=== PATIENT | male | born 1970 | race Caucasian/White ===

== ENCOUNTER 2020-06-13 14:33 | Emergency (ER) | payer BC, SELFPAY ==
--- NOTE | ~2020-06-13 | CT_ITS ---
EXAMINATION: CT lumbar spine wo con, CT pelvis wo con DATE: 06/13/2020 16:16 INDICATION: Low back and right sacroiliac joint pain. TECHNIQUE: 1. Computed tomography (CT) of the lumbar spine was performed without intravenous contrast. Automated exposure control and iterative reconstruction technique were employed. The dose-length product was 1 053.80 mGy-cm. 2. CT of the pelvis was performed without intravenous contrast. The dose-length product was 287.89 mG y-cm. COMPARISON: None FINDINGS: Lumbar spine: Alignment is normal. Vertebral body heights are normal. Mild disc height loss at L4-L5. Remaining dis c heights are normal. Paravertebral soft tissues are unremarkable. The following disc levels are spec ifically discussed: T11-T12: The disc does not extend beyond the endplate margin. There is mild left and minimal right fa cet joint osteoarthritis. There is no neural foraminal stenosis. There is no central canal stenosis. T12-L1: Disc is minimally bulging. There is mild bilateral facet joint osteoarthritis. There is no ne ural foraminal stenosis. There is no central canal stenosis. L1-L2: Disc is mildly bulging. There is mild bilateral facet joint osteoarthritis. There is no neural foraminal stenosis. There is minimal central canal stenosis. L2-L3: Disc is mildly bulging. There is mild bilateral facet joint osteoarthritis. There is no neural foraminal stenosis. There is minimal central canal stenosis. L3-L4: Disc is mildly bulging. There is mild bilateral facet joint osteoarthritis. There is no neural foraminal stenosis. There is minimal central canal stenosis. L4-L5: Disc is bulging with suggestion of small central disc extrusion which extends up to 5 mild or caudal to the level of the superior endplate of L5. There is mild bilateral facet joint osteoarthriti s. There is mild bilateral neural foraminal stenosis. There is mild to moderate central canal stenosi s. L5-S1: The disc does not extend beyond the endplate margin. There is mild bilateral facet joint osteo arthritis. There is no neural foraminal stenosis. There is no central canal stenosis. Pelvis: Bone alignment is normal. No fracture. Minimal bilateral sacroiliac osteoarthritis. No erosions or tyson barticular sclerosis to suggest an inflammatory arthritis. Minimal bilateral hip osteoarthritis with relatively preserved joint spaces and tiny marginal osteophytes about the femoral heads and acetabula . There is bilateral decreased anterosuperior femoral head neck offset. There are couple small sclero tic bone islands at the right femoral head and in the right supra-acetabular region. No avascular nec rosis. There are a couple diverticula along the descending and sigmoid colon without adjacent inflamm atory change to suggest diverticulitis. Normal appendix. Bladder is normal. No pathologically enlarge d pelvic or inguinal lymphadenopathy. IMPRESSION: 1. Minimal to mild lumbar spondylosis most prominent at L4-L5 where there is mild to moderate central canal stenosis. 2. Normal bilateral sacroiliac joints and minimal bilateral hip osteoarthritis. Reviewed, dictated and finalized at location B. IMPRESSION: 1. Minimal to mild lumbar spondylosis most prominent at L4-L5 where there is mi ld to moderate central canal stenosis. 2. Normal bilateral sacroiliac joints and minimal bilateral hip osteoarthritis.
[2020-06-13 14:50] VITALS: BP 111/83; PULSE 63; RESP 18; TEMP 36.7; O2SAT 100
--- NOTE | 2020-06-13 15:16 | ED.BACK ---
HPI - Back Pain/Injury General Chief Complaint: Back Pain/Injury Stated Complaint: 49 YO male w/ 4 day h/o right low back pain after he was lifting a small engine at work. Patient denies trauma or injury but states sfter he lifted the engine he has been having pain on movement. he was on his way to his chiropractor today when he wasn't able to get comfortable, he decided to some to ED instead. Related Data Home Medications Medication Instructions Recorded Confirmed gabapentin 300 mg PO DAILY 06/13/20 06/13/20 Allergies Allergy/AdvReac Type Severity Reaction Status Date / Time phenylephrine Allergy Severe Hives Verified 06/13/20 15:29 Review of Systems Review of Systems: All systems reviewed & are unremarkable except as noted in HPI and below Constitutional: Constitutional: Reports no additional constitutional complaints Eyes: Eyes: Reports as per HPI ENT: Reports system reviewed and no additional complaints, except as documented Cardiovascular: Cardiovascular: Reports no additional cardiovascular complaints Respiratory: Respiratory: Reports no additional respiratory complaints Gastrointestinal: Gastrointestinal: Reports no additional gastrointestinal complaints Genitourinary: Genitourinary: Reports no additional male genitourinary complaints Musculoskeletal: Musculoskeletal: Reports back pain Integumentary/Breasts: Skin/Breast: Reports system reviewed and no additional complaints, except as docu Neurologic: Reports system reviewed and no additional complaints, except as documented, Denies vertigo, Denies syncope, Denies focal weakness and Denies numbness Psychiatric: Psychiatric: Reports no additional psychiatric complaints Endocrine: Endocrine: Reports no additional endocrine complaints Hematologic/Lymphatic: Hematologic/Lymphatic: Reports no additional hematologic/lymphatic complaints Allergic/Immunologic: Allergic/Immunologic: Reports no additional allergic/immunologic complaints [facility] Family History Family History Grandparent Family history of malignant neoplasm Other Hypertension Social History Social History Smoking status: Current every day smoker Alcohol intake: never Gender identity (if verbalized by the patient): Male Exam Const: General: no acute distress and alert Orientation/consciousness: patient oriented x3 HENMT: Head: normal to inspection Neck: Neck: normal visual inspection Chest: Chest palpation & inspection: normal inspection of the chest Resp: Effort & Inspection: normal respiratory effort Auscultation: clear to auscultation bilaterally Cardio: Rate: regular rate Rhythm: regular rhythm GI: Auscultation: normal bowel sounds : General: Yes no CVA tenderness Testes: Testes normal Back/Spine/Pelvis: Back: no CVA tenderness Other: Right SI TTP that reproduces exact pain this patient feels, No central TTP Skin: General skin exam: normal color Neuro: General: patient oriented x3, moves all extremities, no meningeal signs, no focal motor deficits and CN's II-XI intact bilaterally Extrem: General: normal to inspection Psych: Mental Status: mental status grossly normal Affect: normal affect Attitude: cooperative Course Course Emergency Course: Pain improved w/ Meds. W/U normal. D/C home w/ Pain meds. MDM - Back Pain/Injury Differential Diagnosis Differential diagnosis: Likely strain of lumbar region and other (Sacroilitis) Medical Records Attestation: I reviewed the patient's medical records. Critical Care Time Critical Care Time Critical Care Time: No Discharge Plan Discharge Clinical Impression: Sacroiliac strain Qualifiers: Encounter type: initial encounter Qualified Code(s): S39.012A - Strain of muscle, fascia and tendon of lower back, initial encounter Patient Disposition: Home, Self-Care Condition: Improved In
[2020-06-13] MEDS: CYCLOBENZAPRINE HCL 10 MG TABLET PO (15:21)
[2020-06-13] MEDS: KETOROLAC (*BKC) 60 MG/2 ML VIAL IM (15:22)
[2020-06-13 16:30] VITALS: BP 122/60; PULSE 65; RESP 16; TEMP 36.4; O2SAT 100
[2020-06-13 17:02] VITALS: BP 116/65; PULSE 68; RESP 16; TEMP 36.6; O2SAT 99
== END 2020-06-13 17:04 | disposition home or self-care (01) ==
PROVIDERS: Emergency Provider Family Medicine; PCP Internal Medicine
DX: S39.012A Strain of muscle, fascia and tendon of lower back, initial encounter (principal); X50.9XXA Other and unspecified overexertion or strenuous movements or postures, initial encounter
CPT/HCPCS: 72131; 72192; 96372; 99283; 99284; A9270; J1885

== ENCOUNTER 2023-09-15 17:11 | Outpatient (CLI) | payer BC, SELFPAY ==
--- NOTE | ~2023-09-15 | XR_ITS ---
EXAMINATION: XR foot LT min 3V DATE: 09/15/2023 18:45 INDICATION: Left heel pain. TECHNIQUE: 4 views of left foot were obtained. COMPARISON: None. FINDINGS: There is mild hallux valgus. No fracture. There is mild osteoarthritis of first metatarsoph alangeal joint, second distal interphalangeal joint, and first interphalangeal joint. There are enthe sophytes at the posterior and plantar aspects of calcaneal tuberosity. IMPRESSION: 1. Mild polyarticular osteoarthritis. 2. Mild hallux valgus. Reviewed, dictated and finalized at location E. CUTTER
== END 2023-09-15 17:12 | disposition home or self-care (01) ==
LOC: CHSIMG 17:15
PROVIDERS: PCP Family Medicine; Visit Provider Family Medicine
DX: M25.572 Pain in left ankle and joints of left foot (principal); M19.072 Primary osteoarthritis, left ankle and foot; M20.12 Hallux valgus (acquired), left foot
CPT/HCPCS: 73630

== ENCOUNTER 2025-05-14 07:20 | Outpatient (CLI) | payer BC, SELFPAY ==
--- OUTSIDE RECORDS SUMMARY | 2025-05-14 07:27 | XMS_ITS | Encounter Summary ---
Author Organization [facility] Address [address] [place] [address] Care Team Providers Care Top Collar Baster Name Role Phone Maco Wooten MD Primary Care Provider [phone] None, Provider Primary Care Provider Unavaila Juan Francisco Hitchcock MD Primary Care Provider [phone] Jacoby Serna MD Unavailable Encounter Details Date Type Department Care Team (Late st Contact Info) Description 06/12/2013 Abstract [facility] CONVERSION [address] [place], [place] [id number] , Generic Conversion, Social History Tobacco Use Types Packs/Day Years Used Date Smoking Tobacco: Never Assessed Sex and Gender Information Value Date Recorded Sex Assigned at Male 05/19/2024 3:12 AM CDT Legal Sex Male 8:21 PM CDT Gender Identity Male 05/19/2024 3:12 AM CDT Sexual Orientation Straight 05/19/2024 3: 12 AM CDT documented as of this encounter Plan of Treatment Not on file documented as of this encounter Visit Diagnoses Not on filedocumented in this encounter Care Teams Top Collar Baster Relationship Specialty Start Date End Date Maco Wooten MD [address] [place] [address] PCP - General INTERNAL MEDICINE 07/08/19 09/07/23 None, Provider, PCP - General UNKNOWN PHYSICIAN SPECIALTY 09/08/23 05/17/24 Juan Francisco Brito MD [address] [place] [address] PCP - General FAMILY PRACTICE 05/18/24 [place] [address] [place] [address] Consulting Physician GASTROENTEROLOGY 05/18/24 documented as of this encounter
--- OUTSIDE RECORDS SUMMARY | 2025-05-14 07:27 | XMS_ITS | Encounter Summary ---
Author Organization [facility] Address [address] [place] [address] Care Team Providers Care Hat Blocking Operator Name Role Phone Juan Francisco Brito MD Primary Care Provider [phone] Jacoby Serna MD Unavailable Encounter Details Date Type Department Care Team (Late st Contact Info) Description 05/10/2025 Orders Only [facility] [address] [place] [address] Juan Francisco Brito MD [address] [place] [address] Social History Tobacco Use Types Packs/Day Years Used Date Smoking Tobacco: Every Day Cigarettes 0.3 30 Smokeless Tobacco: Never Alcohol Use Standard Drinks/Week Comments Not Currently 0 (1 standard drink = 0.6 oz pur e alcohol) socially [id number] Health Literacy Answer Date Recor ded How often do you need to hav e someone help you when you read instructions, pamphlets, or other written material from your doctor or pharmacy? Never 05/19/2024 [facility] Utilities Answer Date Recorded In the past 12 months has e electric, gas, oil, or water company threatened to shut off services in your home? No 01/22/2025 Humiliation, Afraid, Rape, and Kick questionnair e Answer Date Recorded Within the last year, have y ou been afraid of your partner or ex-partner? No 01/22/2025 Within the last year, have y ou been humiliated or emotionally abused in other ways by your partner or ex-partner? No Within the last year, have y ou been kicked, hit, slapped, or otherwise physically hurt by your partner or ex-partner? No 01/22/2025 Within the last year, have y ou been raped or forced to have any kind of sexual activity by your partner or ex-partner? No 01/22/2025 Social Connection and Isolat ion Panel [NHANES] Answer Date Recorded In a typical week, how many times do you talk on the phone with family, friends, or neighbors? More than three times a week 05/19/2024 How often do you get togethe r with friends or relatives? Never 05/19/2024 How often do you attend [facility] or anabaptist services? More than 4 times per year 05/19/2024 Do you belong to any clubs o r organizations such as adventist groups, unions, fraternal or athletic groups, or school groups? No 05/19/2024 How often do you attend meet ings of the clubs or organizations you belong to? Never 05/19/2024 Are you , , di vorced, , never , or living with a partner? 05/19/2024 AUDIT-C Answer Date Recorded Q1: How often do you have a drink containing alcohol? Never 05/19/2024 Q2: How many drinks containi ng alcohol do you have on a typical day when you are drinking? Patient does not drink Q3: How often do you have si x or more drinks on one occasion? Never 05/19/2024 Overall Financial Resource Strain (CARDIA) Answe r Date Recorded How hard is it for you to pa y for the very basics like food, housing, medical care, and heating? Not hard at all 01/22/2025 PHQ-2 Answer Date Recorded Patient Health Questionnaire-2 Score 0 01/18/2025 [facility] - Occupational Stress Questionnaire Answer Date Recorded Do you feel stress - tense, restless, nervous, or anxious, or unable to sleep at night because your mind is troubled all the time - these days? Not at all 05/19/2024 Exercise Vital Sign Answer Date Recorde d On average, how many days pe r week do you engage in moderate to strenuous exercise (like a brisk walk)? 7 days 05/19/2024 On average, how many minutes do you engage in exercise at this level? 60 min 05/19/2024 Hunger Vital Sign Answer Date Recorded Within the past 12 months, y ou worried that your food would run out before you got the money to buy more. Never true 01/23/20 25 Within the past 12 months, t he food you bought just didn't last and you didn't have money to get more. Never true 01/22/2025 PRAPARE - Transportation Answer Date Re corded In the past 12 months, has l ack of transportation kept you from medical appointments or from getting medications? No 01/08 In the past 12 months, has l ack of transportation kept you from meetings, work, or from getting things needed for daily living? No 01/22/2025 Housing Stability Vital Sign Answer Shadi e Recorded In the last 12 months, was t here a time when you were not able to pay the mortgage or rent on time? No 01/22/2025 In the past 12 months, how m any times have you moved where you were living? 0 01/22/2025 At any time in the past 12 m [facility], were you homeless or living in a long-term (including now)? No 01/22/2025 Sex and Gender Information Value Date Recorded Sex Assigned at Male 05/19/2024 3:12 AM CDT Legal Sex Male 8:21 PM CDT Gender Identity Male 05/19/2024 3:12 AM CDT Sexual Orientation Straight 05/19/2024 3: 12 AM CDT documented as of this encounter Functional Status * Are you deaf or do you have serious difficulty hearing Answer Date of Assessment Author Status No 01/22/2025 5:27 PM CDT Kori Yoon RN Active * Are you blind or do you have serious difficulty seeing, even when wearing glasses? Answer Date of Assessment Author Status No 01/22/2025 5:27 PM CDT Kori Yoon RN Active * Do you have serious difficulty walking or climbing stairs? Answer Date of Assessment Author Status No 01/22/2025 5:27 PM CDT Kori Yoon RN Active * Do you have difficulty dressing or bathing? Answer Date of Assessment Author Status No 01/22/2025 5:27 PM CDT Kori Yoon RN Active * Because of a physical, mental, or emotional condition, do you have difficulty doing errands alone such as visiting a doctor's office or shopping? Answer Date of Assessment Author Status No 01/22/2025 5:27 PM CDT Kori Yoon RN Active documented as of this encounter Mental Status * Because of a physical, mental, or emotional condition, do you have serious difficulty concentrating, remembering, or making decisions? Answer Entry Date Author Status No 01/22/2025 5:27 PM CDT Kori Yoon RN Active documented in this encounter Plan of Treatment Not on file documented as of this encounter Goals Goal Patient Goal Type Associated Problems Recent Progress Patient-Stated? Author Patient will return to prior living situation and remain independent in ADLs upon discharge from hospital Lifestyle No Anna Allison RN documented as of this encounter Results * HEMOGLOBIN, GLYCOSYLATED (05/10/2025 10:03 AM CDT) HGB A1C 5.4 <5.7 % 05/10/2025 11:12 AM CDT [facility] Comment: INCREASED RISK OF DIABETES <5.7% NON-DIABETES 5.7-6.4% INCREASED RISK FOR FUTURE DIABETES > OR = 6.5 CONSISTENT WITH DIABETES STANDARDS OF MEDICAL CARE IN DIABETES-2010 DIABETES CARE, 33(SUPP 1): S1-S61,2010 ESTIMATED AVG GLUCOSE 108 mg/dL 05/10/2025 11:12 AM CDT [facility] 05/10/2025 10:0 3 AM CDT Juan Francisco Brito MD LABORATORY Final Result [facility] [address] [place] [address], [place] [phone] * (ABNORMAL) COMPREHENSIVE METABOLIC PANEL (05/10/2025 10:03 AM CDT) [facility] GLUCOSE 89 70 - 99 MG/DL 05/10/2025 10:23 AM T [facility] BUN 13 7 - 18 MG/DL 05/10/2025 10:23 AM T [facility] CREATININE S/P/B 1.33(H) 0.7 - 1.3 MG/DL 05/10/2025 10:23 AM [facility] SODIUM S/P/B 140 136 - 145 MMOL/L 05/10/2025 10:23 AM [facility] POTASSIUM S/P/B 4.5 3.5 - 5.1 MMOL/L 05/10/2025 10:23 AM [facility] CHLORIDE S/P/B 106 100 - 108 MMOL/L 05/10/2025 10:23 AM [facility] CO2 27.6 21 - 32 MMOL/L 05/10/2025 10:23 AM [facility] CALCIUM S/P/B 8.7 8.5 - 10.1 MG/DL 05/10/2025 10:23 AM [facility] BILIRUBIN TOTAL S/P/B 0.4 0.2 - 1.2 MG/DL 05/10/2025 10:23 AM [facility] TOTAL PROTEIN S/P/B 7.2 6.4 - 8.2 G/DL 05/10/2025 10:23 AM [facility] ALBUMIN S/P/B 3.9 3.4 - 5.0 G/DL 05/10/2025 10:23 AM [facility] AST 16 15 - 37 U/L 05/10/2025 10:23 AM CDT [facility] ALT 37 16 - 60 U/L 05/10/2025 10:23 AM CDT [facility] ALKALINE PHOSPHATASE S/P/B 112 50 - 136 U/L 05/10/2025 10:23 AM CDT [facility] ANION GAP 6.4 5 - 15 MMOL/L 05/10/2025 10:23 AM T [facility] BUN CREATININE RATIO 9.8 6 - 26 05/10/2025 10:23 AM T [facility] A/G RATIO 1.2 1.0 - 2.0 RATIO 05/10/2025 10:23 AM T [facility] GFR ESTIMATE 64(L) >90 ML/MIN/1.7 3 M2 05/10/2025 10:23 AM T [facility] Comment: NOTE: eGFR is not calculated for patients <18 years of age. This is an estimated GFR calculation using the new CKD EPI creatinine equation without race and so does not require a correction factor for race. This estimated GFR should not be used for calculating drug doses. 05/10/2025 10:0 3 AM CDT Juan Francisco Brito MD LABORATORY Final Result [facility] [address] [place] [address], * CBC W/DIFF AUTOMATED (05/10/2025 10:03 AM CDT) WBC 8.61 4.4 - 11.0 x10'3/uL 05/10/2025 10:10 AM CDT [facility] RBC 4.77 4.50 - 5.90 x10'6/uL 05/10/2025 10:10 AM CDT [facility] HGB 14.5 14.0 - 17.5 G/DL 05/10/2025 10:10 AM T [facility] HCT 42.2 41.5 - 50.4 % 05/10/2025 10:10 AM T [facility] MCV 88.5 80.0 - 96.0 FL 05/10/2025 10:10 AM T [facility] MCH 30.4 26.5 - 31.4 PG 05/10/2025 10:10 AM T [facility] MCHC 34.4 31.9 - 34.8 G/DL 05/10/2025 10:10 AM [facility] RDW 12.5 12.3 - 14.3 % 05/10/2025 10:10 AM [facility] PLT 216 151 - 353 x10'3/uL 05/10/2025 10:10 AM [facility] MPV 10.0 9.7 - 11.9 FL 05/10/2025 10:10 AM T [facility] RBC MORPHOLOGY NORMAL 05/10/2025 10:10 AM [facility] PLT MORPH. NORMAL 05/10/2025 10:10 AM [facility] WBC MORPHOLOGY NORMAL 05/10/2025 10:10 AM [facility] LYMPHOCYTES % 29.6 15.8 - 45.0 % 05/10/2025 10:10 AM T [facility] NEUTROPHILS % 53.6 42.1 - 71.9 % 05/10/2025 10:10 AM T [facility] MONOCYTES % 11.0 5.7 - 12.5 % 05/10/2025 10:10 AM T [facility] EOSINOPHILS 5.0 0.0 - 5.6 % 05/10/2025 10:10 AM CDT [facility] BASOPHILS 0.7 0.0 - 1.3 % 05/10/2025 10:10 AM CDT [facility] ABS. NEUTROPHILS 4.61 1.40 - 6.00 x10'3/uL 05/10/2025 10:10 AM CDT [facility] IMMATURE GRANS % 0.1 0.0 - 0.5 % 05/10/2025 10:10 AM CDT [facility] ABS. LYMPHOCYTES 2.55 0.80 - 4.70 x10'3/uL 05/10/2025 10:10 AM CDT [facility] 05/10/2025 10:0 3 AM CDT Juan Francisco Brito MD LABORATORY Final Result Performing Organization Address City/State/[facility] Co de Phone Number [facility] [address] [place] [address], documented in this encounter Visit Diagnoses Diagnosis Syncope and collapse- Primary documented in this encounter Additional Health Concerns Assessment Noted Time PHQ-9 Depression Total Score: 0 01/19/20 25 2:11 PM CDT documented as of this encounter Care Teams Hat Blocking Operator Relationship Specialty Start Date End Date Juan Francisco Brito MD [address] [place] [address] PCP - General FAMILY PRACTICE 05/18/24 [place] [address] [place] [address] Consulting Physician GASTROENTEROLOGY 05/18/24 documented as of this encounter
--- OUTSIDE RECORDS SUMMARY | 2025-05-14 07:27 | XMS_ITS | Encounter Summary ---
Author Organization [facility] Address [address] [place] [address] Care Team Providers Care Space Operations Officer Name Role Phone Maco Wooten MD Primary Care Provider [phone] None, Provider Primary Care Provider Unavaila Juan Francisco Hitchcock MD Primary Care Provider [phone] Jacoby Serna MD Unavailable Encounter Details Date Type Department Care Team (Late st Contact Info) Description 07/12/2019 Hospital Follow-up Call [facility] Med/Surg [address] [place] [address] Batsheva Troncoso RN Social History Tobacco Use Types Packs/Day Years Used Date Smoking Tobacco: Light Smoker Cigarettes 0.3 30 Smokeless Tobacco: Never Alcohol Use Standard Drinks/Week Comments Yes 0 (1 standard drink = 0.6 oz pur e alcohol) socially AUDIT-C Answer Date Recorded Frequency of Alcohol Consumption Never 07/08/2019 Average Number of Drinks Not on file 019 Frequency of Binge Drinking Not on file 06/11 Sex and Gender Information Value Date Recorded Sex Assigned at Male 05/19/2024 3:12 AM CDT Legal Sex Male 8:21 PM CDT Gender Identity Male 05/19/2024 3:12 AM CDT Sexual Orientation Straight 05/19/2024 3: 12 AM CDT documented as of this encounter Functional Status * RETIRED Are you deaf or do you have serious difficulty hearing Answer Date of Assessment Author Status No 07/11/2019 10:35 AM CDT Acti ve * RETIRED Are you blind or do you have serious difficulty seeing, even when wearing glasses? Answer Date of Assessment Author Status No 07/11/2019 10:35 AM CDT Acti ve * Do you have serious difficulty walking or climbing stairs? Answer Date of Assessment Author Status No 07/11/2019 10:35 AM CDT Jenny Taylor RN Active * Do you have difficulty dressing or bathing? Answer Date of Assessment Author Status No 07/11/2019 10:35 AM ANGELAT Jenny Taylor RN Active * Because of a physical, mental, or emotional condition, do you have difficulty doing errands alone such as visiting a doctor's office or shopping? Answer Date of Assessment Author Status No 07/11/2019 10:35 AM Jenny Garay RN Active documented as of this encounter Mental Status * Because of a physical, mental, or emotional condition, do you have serious difficulty concentrating, remembering, or making decisions? Answer Entry Date Author Status No 07/11/2019 10:35 AM Jenny Garay RN Active documented in this encounter Plan of Treatment Not on file documented as of this encounter Visit Diagnoses Not on filedocumented in this encounter Care Teams Space Operations Officer Relationship Specialty Start Date End Date Maco Wooten MD [address] [place] [address] PCP - General INTERNAL MEDICINE 07/08/19 09/07/23 Shai Brown MD PCP - General UNKNOWN PHYSICIAN SPECIALTY 09/08/23 05/17/24 Juan Francisco Brito MD [address] [place] [address] PCP - General FAMILY PRACTICE 05/18/24 [place] [address] [place] [address] Consulting Physician GASTROENTEROLOGY 05/18/24 documented as of this encounter
--- OUTSIDE RECORDS SUMMARY | 2025-05-14 07:27 | XMS_ITS | Clinical Summary ---
Author Organization [facility] Address [address] [place] [address] Care Team Providers Care Whipped Topping Supervisor Name Role Phone Juan Francisco Brito MD Primary Care Provider [phone] Jacoby Serna MD Unavailable Allergies No known active allergies Medications pancrelipase, Urv-Qzzk-Ftuj, (CREON) 6000 UNIT CAPSULE ENTERIC COATED PARTICLESIndicatio ns:Pancreatic insufficiency (HHS/HCC) Take 2 capsules (12,000 units of lipase total) by mouth 3 (three) times daily with meals. 540 capsule 3 4 07/05/20 25 Active pantoprazole EC (PROTONIX) 40 MG tabletIndications: Acute gastric ulcer without hemorrhage or perforation Take 1 tablet (40 mg total) by mouth 2 (two) times daily before meals. 60 tablet 6 4 Active multi vitamin/minerals (THERA-M ENHANCED) tablet Take 1 tablet by mouth daily. Active gabapentin (NEURONTIN) 100 MG capsule Take 1 capsule (100 mg total) by mouth 3 (three) times daily. 90 capsule 5 Active sucralfate (CARAFATE) 1 G tabletIndications: Epigastric pain TAKE 1 TABLET BY MOUTH THREE TIMES DAILY BEFORE MEALS 120 tablet 5 Active Active Problems Problem Noted Date Diagnosed Date Abdominal pain 05/18/2024 Chronic pancreatitis (CMS/[facility]) Arias's esophagus without dysplasia 03/18/2022 Overview (03/18/2022): Added automatically from request for surgery [id number] Screen for colon cancer 03/18/2022 Overview (03/18/2022): Added automatically from request for surgery [id number] History of colon polyps 03/18/2022 Overview (03/18/2022): Added automatically from request for surgery [id number] Melena 03/18/2022 Overview (03/18/2022): Added automatically from request for surgery [id number] Right upper quadrant abdominal pain 07/10/2019 Gastric ulcer 07/09/2019 Tobacco abuse disorder 07/09/2019 Disorder of pancreas ([facility]) 02/23/2014 Overview (05/19/2024): PANCREATIC DISEASE NOS Hypoglycemia 02/23/2014 Overview (05/19/2024): HYPOGLYCEMIA NOS Encounters Date Type Department Care Team Description 05/10/2025 9:59 AM CDT - 05/10/2025 11:59 PM CDT Hospital Encounter [facility] [address] [place] [address] Juan Francisco Brito MD Discharge Disposition: Home or Self Care (Routine Discharge) 05/10/2025 Orders Only [facility] [address] [place] [address] Juan Francisco Brito MD 05/10/2025 Travel 05/07/2025 5:12 PM CDT - 05/07/2025 7:45 PM CDT Emergency [facility] Emergency Room [address] [place] [address] Perlita Irving MD Syncope; Headache Discharge Disposition: Home or Self Care (Routine Discharge) 05/07/2025 Travel 02/27/2025 [facility] [address] [facility] [facility], [address] [place] [phone] Dulce Mercado RN 02/21/2025 Telephone [facility] [address] [facility] [place] [phone] Jacoby Serna MD Medication from Last 3 Months Family History Medical History Relation Comments Cancer Father Cancer Maternal Grandfather Heart Disease Mother Relation Status Comments Father skin cancer Maternal Grandfather Alive Mother Social History Tobacco Use Types Packs/Day Years Used Date Smoking Tobacco: Every Day Cigarettes 0.3 30 Smokeless Tobacco: Never Tobacco Cessation:Ready to Q uit: Not Asked; Counseling Given: Not Answered Alcohol Use Standard Drinks/Week Comments Not Currently 0 (1 standard drink = 0.6 oz pur e alcohol) socially [id number] Health Literacy Answer Date Recor ded How often do you need to hav e someone help you when you read instructions, pamphlets, or other written material from your doctor or pharmacy? Never 05/19/2024 [facility] Utilities Answer Date Recorded In the past 12 months has e [employer], gas, oil, or water [employer] threatened to shut off services in your [...] Never 05/19/2024 How often do you attend chur ch or hoahaoism services? More than 4 times per year 05/19/2024 Do you belong to any clubs o r organizations such as confucianism groups, unions, fraternal or athletic groups, or [...] Recorded Patient Health Questionnaire-2 Score 0 01/18/2025 [facility] - Occupational [...] [facility] in the [facility] were you homeless or living in a prison (including now)? No 01/22/2025 Sex and Gender Information Value Date Recorded Sex Assigned at Male 05/19/2024 3:12 AM CDT Legal Sex Male 8:21 PM CDT Gender Identity Male 05/19/2024 3:12 AM CDT Sexual Orientation Straight 05/19/2024 3: 12 AM CDT Last Filed Vital Signs Vital Sign Reading Time Taken Comments Blood Pressure 132/82 05/07/2025 7:31 PM CDT Pulse 64 05/07/2025 7:31 PM CDT Temperature 36.9 C (98.4 F) 05/07/2025 7:31 PM CDT Respiratory Rate 19 05/07/2025 7:31 PM CDT Oxygen Saturation 98% 05/07/2025 7:31 PM CDT Inhaled Oxygen Concentration - - Weight 77.1 kg (170 lb) 05/07/2025 5:19 PM CDT Height 180.3 cm (5' 11) 05/07/2025 5:19 PM CDT Body Mass Index 23.71 05/07/2025 5:19 PM CDT Plan of Treatment Health Maintenance Due Date Last Done Comments Annual Physical 1974 Hepatitis C 1989 DTaP, Tdap and Td Vaccines ( 1 - Tdap) 1990 Hepatitis B Vaccines (1 of 3 - 19+ 3-dose series) 1990 Pneumococcal Vaccine: 50+ Years (1 of 2 - PCV) 1990 Zoster Vaccines (1 of 2) 2021 EGD-Arias's Surveillance 07/08/2022 07/08/2019 COVID-19 Vaccine (2023-2 5 season) 2024 10/25/2021, 01/25/2021, 01/05/2021 Colorectal Cancer Screening Colonoscopy (10 Years) 03/26/2032 03/26/2022 PHQ-2 (Physician [place]) Completed 01/18/2025 Meningococcal B Vaccine Aged Out No l onger eligible based on patient's age to complete this topic Meningococcal Vaccine Aged Out No luis daniel yudy eligible based on patient's age to complete this topic RSV Immunizations Under 20 Months Aged Out No longer eligible b ased on patient's age to complete this topic Goals Goal Patient Goal Type Associated Problems Recent Progress Patient-Stated? Author Patient will return to prior living situation and remain independent in ADLs upon discharge from hospital Lifestyle No Anna Allison RN Procedures Procedure Name Priority Date/Time Associated Diagnosis Comments HEMOGLOBIN, GLYCOSYLATED Routine 05/10/2025 10:03 AM CDT Syncope and collapse COMPREHENSIVE METABOLIC PANEL Routine 05/10/2025 10:03 AM CDT Syncope and collapse CBC W/DIFF AUTOMATED Routine 05/10/2025 10:03 AM CDT Syncope and collapse DRUG SCREEN RAPID STAT 05/07/2025 6:4 4 PM CDT URINALYSIS, AUTO, COMPLETE STAT 05/07/2025 6:[address] ABD+PEL W CON STAT 05/07/2025 6:10 PM CDT CTA CHEST STAT 05/07/2025 6:[address] HEAD WO CON STAT 05/07/2025 5:44 PM CDT LACTIC ACID W REFLEX (SEPSIS) STAT 05/07/2025 5:39 PM CDT POCT GLUCOSE - DOCKED DEVICE Routine 05/07/2025 5:34 PM CDT ECG 12-LEAD Routine 05/07/2025 5:30 PM CDT POCT GLUCOSE - DOCKED DEVICE Routine 05/07/2025 5:16 PM CDT ETHANOL STAT 05/07/2025 5:15 PM CDT MAGNESIUM STAT 05/07/2025 5:15 PM CDT PRO-BRAIN NATRIURETIC PEPTIDE STAT 05/07/2025 5:15 PM CDT CK (CPK) STAT 05/07/2025 5:15 PM CDT LIPASE STAT 05/07/2025 5:15 PM CDT TROPONIN, QUANT STAT 05/07/2025 5:15 PM CDT COMPREHENSIVE METABOLIC PANEL STAT 05/07/2025 5:15 PM CDT PROTHROMBIN TIME, VENOUS STAT 05/07/2025 5:15 PM CDT CBC W/DIFF AUTOMATED STAT 05/07/2025 5:15 PM CDT EGD GENERIC (SCAN ORDER) Routine 07/08/2019 from Last 3 Months or Most Recently Relevant to Health Maintenance Results * HEMOGLOBIN, GLYCOSYLATED (05/10/2025 10:03 AM CDT) HGB A1C 5.4 <5.7 % 05/10/2025 11:12 AM CDT [facility] Comment: INCREASED RISK OF DIABETES <5.7% NON-DIABETES 5.7-6.4% INCREASED RISK FOR FUTURE DIABETES > OR = 6.5 CONSISTENT WITH DIABETES STANDARDS OF MEDICAL CARE IN DIABETES-2010 DIABETES CARE, 33(SUPP 1): S1-S61,2009 ESTIMATED AVG GLUCOSE 108 mg/dL 05/10/2025 11:12 AM CDT [facility] 05/10/2025 10:0 3 AM CDT us Juan Francisco Brito MD LABORATORY Final Result [facility] [address] [place] [address], * (ABNORMAL) COMPREHENSIVE METABOLIC PANEL (05/10/2025 10:03 AM CDT) Only the most recent of2 resultswithin the time period is included. GLUCOSE 89 70 - 99 MG/DL 05/10/2025 10:23 AM CDT [facility] BUN 13 7 - 18 MG/DL 05/10/2025 10:23 AM CDT [facility] CREATININE S/P/B 1.33(H) 0.7 - 1.3 MG/DL 05/10/2025 10:23 AM CDT [facility] SODIUM S/P/B 140 136 - 145 MMOL/L 05/10/2025 10:23 AM CDT [facility] POTASSIUM S/P/B 4.5 3.5 - 5.1 MMOL/L 05/10/2025 10:23 AM CDT [facility] CHLORIDE S/P/B 106 100 - 108 MMOL/L 05/10/2025 10:23 AM CDT [facility] CO2 27.6 21 - 32 MMOL/L 05/10/2025 10:23 AM CDT [facility] CALCIUM S/P/B 8.7 8.5 - 10.1 MG/DL 05/10/2025 10:23 AM CDT [facility] BILIRUBIN TOTAL S/P/B 0.4 0.2 - 1.2 MG/DL 05/10/2025 10:23 AM CDT [facility] TOTAL PROTEIN S/P/B 7.2 6.4 - 8.2 G/DL 05/10/2025 10:23 AM [facility] ALBUMIN S/P/B 3.9 3.4 - 5.0 G/DL 05/10/2025 10:23 AM [facility] AST 16 15 - 37 U/L 05/10/2025 10:23 AM [facility] ALT 37 16 - 60 U/L 05/10/2025 10:23 AM [facility] ALKALINE PHOSPHATASE S/P/B 112 50 - 136 U/L 05/10/2025 10:23 AM [facility] ANION GAP 6.4 5 - 15 MMOL/L 05/10/2025 10:23 AM [facility] BUN CREATININE RATIO 9.8 6 - 26 05/10/2025 10:23 AM [facility] A/G RATIO 1.2 1.0 - 2.0 RATIO 05/10/2025 10:23 AM [facility] GFR ESTIMATE 64(L) >90 ML/MIN/1.7 3 M2 05/10/2025 10:23 AM [facility] Comment: NOTE: eGFR is not calculated for patients <18 years of age. This is an estimated GFR calculation using the new CKD EPI creatinine equation without race and so does not require a correction factor for race. This estimated GFR should not be used for calculating drug doses. 05/10/2025 10:0 3 AM CDT us Juan Francisco Brito MD LABORATORY Final Result [facility] [address] [place] [address], * CBC W/DIFF AUTOMATED (05/10/2025 10:03 AM CDT) Only the most recent of2 resultswithin the time period is included. WBC 8.61 4.4 - 11.0 x10'3/uL 05/10/2025 10:10 AM CDT [facility] RBC 4.77 4.50 - 5.90 x10'6/uL 05/10/2025 10:10 AM CDT [facility] HGB 14.5 14.0 - 17.5 G/DL 05/10/2025 10:10 AM T [facility] HCT 42.2 41.5 - 50.4 % 05/10/2025 10:10 AM CDT [facility] MCV 88.5 80.0 - 96.0 FL 05/10/2025 10:10 AM CDT [facility] MCH 30.4 26.5 - 31.4 PG 05/10/2025 10:10 AM T [facility] MCHC 34.4 31.9 - 34.8 G/DL 05/10/2025 10:10 AM T [facility] RDW 12.5 12.3 - 14.3 % 05/10/2025 10:10 AM T [facility] PLT 216 151 - 353 x10'3/uL 05/10/2025 10:10 AM T [facility] MPV 10.0 9.7 - 11.9 FL 05/10/2025 10:10 AM T [facility] RBC MORPHOLOGY NORMAL 05/10/2025 10:10 AM T [facility] PLT MORPH. NORMAL 05/10/2025 10:10 AM CDT [facility] WBC MORPHOLOGY NORMAL 05/10/2025 10:10 AM T [facility] LYMPHOCYTES % 29.6 15.8 - 45.0 % 05/10/2025 10:10 AM CDT [facility] NEUTROPHILS % 53.6 42.1 - 71.9 % 05/10/2025 10:10 AM CDT [facility] MONOCYTES % 11.0 5.7 - 12.5 % 05/10/2025 10:10 AM CDT [facility] EOSINOPHILS 5.0 0.0 - 5.6 % 05/10/2025 10:10 AM CDT [facility] BASOPHILS 0.7 0.0 - 1.3 % 05/10/2025 10:10 AM CDT [facility] ABS. NEUTROPHILS 4.61 1.40 - 6.00 x10'3/uL 05/10/2025 10:10 AM CDT [facility] IMMATURE GRANS % 0.1 0.0 - 0.5 % 05/10/2025 10:10 AM CDT [facility] ABS. LYMPHOCYTES 2.55 0.80 - 4.70 x10'3/uL 05/10/2025 10:10 AM CDT [facility] 05/10/2025 10:0 3 AM CDT Juan Francisco Brito MD LABORATORY Final Result [facility] [address] [place] [address], * DRUG SCREEN RAPID (05/07/2025 6:44 PM CDT) AMPHETAMINE (U) NONE DETECTED NONE DETECTED 05/07/2025 7:11 PM CDT [facility] BARBITURATES SCREEN (U) NONE DETECTED NONE DETECTED 05/07/2025 7:11 PM CDT [facility] BENZODIAZEPINES SCREEN (U) NONE DETECTED NONE DETECTED 05/07/2025 7:11 PM CDT [facility] BUPRENORPHINE SCREEN (U) NONE DETECTED NONE DETECTED 05/07/2025 7:11 PM CDT [facility] COCAINE METABOLITES (U) NONE DETECTED NONE DETECTED 05/07/2025 7:11 PM CDT [facility] METHAMPHETAMINE (U) NONE DETECTED NONE DETECTED 05/07/2025 7:11 PM CDT [facility] METHADONE (U) NONE DETECTED NONE DETECTED 05/07/2025 7:11 PM CDT [facility] OPIATE SCREEN (U) NONE DETECTED NONE DETECTED 05/07/2025 7:11 PM CDT [facility] OXYCODONE SCREEN (U) NONE DETECTED NONE DETECTED 05/07/2025 7:11 PM CDT [facility] PHENCYCLIDINE PCP (U) NONE DETECTED NONE DETECTED 05/07/2025 7:11 PM CDT [facility] CANNABINOIDS SCREEN (U) NONE DETECTED NONE DETECTED 05/07/2025 7:11 PM CDT [facility] TRICYCLIC ANTIDEPRESSANT SCREEN (U) NONE DETECTED NONE DETECTED 05/07/2025 7:11 PM CDT [facility] Comment: NOTE: RESULTS OF THIS DRUG SCREEN SHOULD BE USED FOR MEDICAL PURPOSES ONLY AND NOT FOR LEGAL OR EMPLOYEMENT PURPOSES. MEDICATIONS CONTAINING EPHEDRINE MAY CAUSE FALSE POSITIVE AMPHETAMINE. AMPHETAMINE- 500 NG/ML BARBITURATE- 200 NG/ML BENZODIAZEPINE- 150 NG/ML BUPRENORPHINE- 10 NG/ML COCAINE- 150 NG/ML METHAMPHETAMINES- 500 NG/ML METHADONE- 200 NG/ML OPIATE- 100 NG/ML OXYCODONE- 100 NG/ML PCP- 25 NG/ML THC- 50 NG/ML TCA- 300 NG/ML URINE SPECIMEN / Unknown 05/07/2025 6:44 PM CDT us Perlita Irving MD URINE ORDERABLES Final Result [facility] [address] [facility] [place] [address], [place] [phone] * URINALYSIS, AUTO, COMPLETE (05/07/2025 6:44 PM CDT) COLOR (U) YELLOW 05/07/2025 7:06 PM CDT [facility] TRANSPARENCY CLEAR 05/07/2025 7:06 PM CDT [facility] SPECIFIC GRAVITY (U) 1.015 1.000 - 1.030 05/07/2025 7:06 PM CDT [facility] U PH 6.0 5.0 - 9.0 05/07/2025 7:06 PM CDT [facility] LEUKOCYTES (U) NEGATIVE NEGATIVE 05/07/2025 7:06 PM CDT [facility] NITRITES NEGATIVE NEGATIVE 05/07/2025 7:06 PM CDT [facility] PROTEIN RANDOM (U) NEGATIVE NEGATIVE 05/07/2025 7:06 PM CDT [facility] GLUCOSE (U) NEGATIVE NEGATIVE 05/07/2025 7:06 PM CDT [facility] KETONES MG/DL (U) NEGATIVE NEGATIVE 05/07/2025 7:06 PM CDT [facility] BILIRUBIN (U) NEGATIVE NEGATIVE 05/07/2025 7:06 PM CDT [facility] BLOOD (U) NEGATIVE NEGATIVE 05/07/2025 7:06 PM CDT [facility] WBC/HPF NONE SEEN 0 - 5 /HPF 05/07/2025 7:06 PM CDT [facility] RBC/HPF NONE SEEN 0 - 5 /HPF 05/07/2025 7:06 PM CDT [facility] EPI/HPF NONE SEEN /HPF 05/07/2025 7:06 PM CDT [facility] URINE SPECIMEN OBTAINED BY CLEAN CATCH PROCEDURE / Unknown 05/07/2025 6:44 PM CDT Perlita Irving MD URINE ORDERABLES Final Result [facility] [address] [place] [address], [place] [phone] * CT ABD+PEL W CON (05/07/2025 6:10 PM CDT) Anatomical Region Laterality Modality Abdomen Computed Tomogra phy 05/07/2025 6:22 PM CDT Impressions 05/07/2025 6:26 PM CDT IMPRESSION: 1. No acute abnormality is seen within the abdomen or pelvis. No CT evidence of pancreatitis. 2. Status post cholecystectomy. Ordered By: PERLITA IRVING Interpreted By: Patricia Bergman MD, 05/07/2025 6:22 PM Narrative 05/07/2025 6:26 PM CDT [facility] [address] [place] [address] PROCEDURE: CT ABD+PEL W CON HISTORY: Pancreatitis. Epigastric pain. TECHNIQUE: Helical CT of the abdomen and pelvis was performed using non-ionic intravenous contrast. Ingested oral contrast partially opacifies the bowel. A dose lowering technique was used for this procedure, which may include, but is not limited to, dose reduction technique, automated exposure control, the use of iterative reconstruction, and ALARA (As Low As Reasonably Achievable) / Image Gently techniques. COMPARISON: CT abdomen pelvis with contrast, 01/23/2025. FINDINGS CT ABDOMEN/PELVIS: Lower thorax: The lung bases are clear. The heart size is normal. Small hiatal hernia Liver: The liver is normal in size. There is no intrahepatic mass. Biliary tree: The patient is post cholecystectomy. There is no biliary ductal dilatation. Spleen: The spleen is normal in size. Pancreas: The pancreas is normal in size and enhances homogenously. Adrenal glands: The adrenal glands are normal in size and shape. Kidneys: There are bilateral symmetric nephrograms without hydronephrosis. Lymph nodes: Abdomen: There is no abdominal adenopathy. Pelvis: There is no pelvic adenopathy. Vasculature: There is no abdominal aortic aneurysm. Atherosclerotic calcification is seen. Peritoneum/mesentery/omentum: There is no free fluid or free air. GI tract: There is no bowel obstruction. The appendix normal. There is no abnormal bowel wall thickening to suggest acute inflammation. Pelvic urogenital structures:The bladder is grossly unremarkable. The prostate is present. Body wall: There are degenerative changes in the spine. No aggressive osseous lesions identified [place]: (S/I) = series number / image number Procedure Note Patricia Bergman MD - 05/07/2025 [facility] [address] [place] [address] PROCEDURE: CT ABD+PEL W CON HISTORY: Pancreatitis. Epigastric pain. TECHNIQUE: Helical CT of the abdomen and pelvis was performed usingnon-ionic intravenous contrast. Ingested oral contrast partiallyopacifies the bowel. A dose lowering technique was used for this procedure, which may include,but is not limited to, dose reduction technique, automated exposurecontrol, the use of iterative reconstruction, and ALARA (As Low AsReasonably Achievable) / Image Gently techniques. COMPARISON: CT abdomen pelvis with contrast, 01/23/2025. FINDINGS CT ABDOMEN/PELVIS: Lower thorax: The lung bases are clear. The heart size is normal. Smallhiatal hernia Liver: The liver is normal in size. There is no intrahepatic mass. Biliary tree: The patient is post cholecystectomy. There is no biliaryductal dilatation. Spleen: The spleen is normal in size. Pancreas: The pancreas is normal in size and enhances homogenously. Adrenal glands: The adrenal glands are normal in size and shape. Kidneys: There are bilateral symmetric nephrograms withouthydronephrosis. Lymph nodes: Abdomen: There is no abdominal adenopathy. Pelvis: There is no pelvic adenopathy. Vasculature: There is no abdominal aortic aneurysm. Atheroscleroticcalcification is seen. Peritoneum/mesentery/omentum: There is no free fluid or free air. GI tract: There is no bowel obstruction. The appendix normal. There is noabnormal bowel wall thickening to suggest acute inflammation. Pelvic urogenital structures:The bladder is grossly unremarkable. Theprostate is present. Body wall: There are degenerative changes in the spine. No aggressiveosseous lesions identified [place]: (S/I) = series number / image number IMPRESSION: 1. No acute abnormality is seen within the abdomen or pelvis. No CTevidence of pancreatitis. 2. Status post cholecystectomy. Ordered By: PERLITA IRVING Interpreted By: Patricia Bergman MD, 05/07/2025 6:22 PM Perlita Irving MD CT Final Result * CTA CHEST (05/07/2025 6:08 PM CDT) Anatomical Region Laterality Modality Chest Computed Tomogra phy 05/07/2025 6:26 PM CDT Impressions 05/07/2025 6:31 PM CDT IMPRESSION: 1. There is no acute pulmonary embolism to the first subsegmental pulmonary artery level. 2. Mild bilateral bronchial wall thickening, which can seen with small infection/inflammation or reactive airway disease. 3. Small hiatal hernia. Ordered By: PERLITA IRVING Interpreted By: Patricia Bergman MD, 05/07/2025 6:26 PM Narrative 05/07/2025 6:31 PM CDT [facility] [address] [place] [address] PROCEDURE: CTA CHEST. HISTORY: Evaluate for pulmonary embolism. Chest pain. Shortness of breath. TECHNIQUE: Contrast enhanced helical CT pulmonary angiography was then performed. Routine transaxial and post-processed (sagittal and coronal MPR) reformations of the acquired data sets were obtained (Isovue-370, 80 mL). Standard 3-D (MIP) reformations of the acquired data sets were also obtained. A dose lowering technique was used for this procedure, which may include, but is not limited to, dose reduction technique, automated exposure control, the use of iterative reconstruction, and ALARA (As Low As Reasonably Achievable) / Image Gently techniques. COMPARISON: CT abdomen pelvis with contrast. PULMONARY CTA FINDINGS: This is a diagnostic quality helical CT pulmonary angiogram. There is no acute pulmonary embolism to the first subsegmental pulmonary artery level. OTHER FINDINGS: Support Devices: None. Heart/Pericardium/Great Vessels: Cardiac size is normal. Calcific coronary artery atherosclerosis cannot be accurately evaluated on this contrast-enhanced exam. There is no pericardial effusion. There is no thoracic aortic or branch vessel calcific atherosclerosis The main pulmonary artery is normal in diameter. The mid ascending thoracic aorta measures up to 3.6 cm. Pleural Spaces: The pleural spaces are clear. Mediastinum/[place]: There is no mediastinal or hilar lymph node enlargement. Small hiatal hernia. Neck Base/Chest Wall/Diaphragm/Upper Abdomen: There is no supraclavicular or axillary lymph node enlargement. Status post cholecystectomy. Limited imaging through the upper abdomen is within normal limits. Mild degenerative change is present in the spine. Lungs/Central Airways: The trachea and central airways are clear normal in caliber. Mild bilateral bronchial wall thickening. No focal consolidation. No suspicious pulmonary nodules identified. Procedure Note Patricia Bergman MD - 05/07/2025 [facility] [address] [place] [address] PROCEDURE: CTA CHEST. HISTORY: Evaluate for pulmonary embolism. Chest pain. Shortness ofbreath. TECHNIQUE: Contrast enhanced helical CT pulmonary angiography was thenperformed. Routine transaxial and post-processed (sagittal and coronalMPR) reformations of the acquired data sets were obtained (Isovue-370, 80mL). Standard 3-D (MIP) reformations of the acquired data sets were alsoobtained. A dose lowering technique was used for this procedure, which may include,but is not limited to, dose reduction technique, automated exposurecontrol, the use of iterative reconstruction, and ALARA (As Low AsReasonably Achievable) / Image Gently techniques. COMPARISON: CT abdomen pelvis with contrast. PULMONARY CTA FINDINGS: This is a diagnostic quality helical CT pulmonaryangiogram. There is no acute pulmonary embolism to the first subsegmentalpulmonary artery level. OTHER FINDINGS: Support Devices: None. Heart/Pericardium/Great Vessels: Cardiac size is normal. Calcific coronary artery atherosclerosis cannot be accuratelyevaluated on this contrast-enhanced exam. There is no pericardial effusion. There is no thoracic aortic or branch vessel calcificatherosclerosis The main pulmonary artery is normal in diameter. The mid ascendingthoracic aorta measures up to 3.6 cm. Pleural Spaces: The pleural spaces are clear. Mediastinum/[place]: There is no mediastinal or hilar lymph nodeenlargement. Small hiatal hernia. Neck Base/Chest Wall/Diaphragm/Upper Abdomen: There is no supraclavicularor axillary lymph node enlargement. Status post cholecystectomy. Limitedimaging through the upper abdomen is within normal limits. Milddegenerative change is present in the spine. Lungs/Central Airways: The trachea and central airways are clear normalin caliber. Mild bilateral bronchial wall thickening. No focalconsolidation. No suspicious pulmonary nodules identified. IMPRESSION: 1. There is no acute pulmonary embolism to the first subsegmentalpulmonary artery level. 2. Mild bilateral bronchial wall thickening, which can seen with smallinfection/inflammation or reactive airway disease. 3. Small hiatal hernia. Ordered By: PERLITA IRVING Interpreted By: Patricia Bergman MD, 05/07/2025 6:26 PM Perlita Irving MD CT Final Result * CT HEAD WO CON (05/07/2025 5:44 PM CDT) Anatomical Region Laterality Modality Head Computed Tomogra phy 05/07/2025 6:39 PM CDT Impressions 05/07/2025 6:44 PM CDT IMPRESSION: Normal noncontrast head CT. Referred By: Interpreted By: Anders Colon MD, 05/07/2025 6:39 PM Narrative 05/07/2025 6:44 PM CDT [facility] [address] [place] [address] EXAM: CT HEAD WO CON DATE: 05/07/2025 COMPARISON: None INDICATION: Syncope, fell TECHNIQUE: Noncontrast imaging A dose lowering technique was used for this procedure, which may include, but is not limited to, dose reduction technique, automated exposure control, iterative reconstruction, ALARA (As Low As Reasonably Achievable), or Image Gently techniques. FINDINGS: No hemorrhage, mass effect, or ventricular dilation. No evidence of stroke. Normal appearance of the bones. Procedure Note Anders Colon MD - 05/07/2025 [place] [id number] [facility] [place] [address] EXAM: CT HEAD WO CON DATE: 05/07/2025 COMPARISON: None INDICATION: Syncope, fell TECHNIQUE: Noncontrast imaging A dose lowering technique was used for this procedure, which may include,but is not limited to, dose reduction technique, automated exposurecontrol, iterative reconstruction, ALARA (As Low As ReasonablyAchievable), or Image Gently techniques. FINDINGS: No hemorrhage, mass effect, or ventricular dilation. Noevidence of stroke. Normal appearance of the bones. IMPRESSION: Normal noncontrast head CT. Referred By: Interpreted By: Anders Colon MD, 05/07/2025 6:39 PM us Perlita Irving MD CT Final Result * LACTIC ACID W REFLEX (SEPSIS) (05/07/2025 5:39 PM CDT) LACTIC ACID VENOUS 1.0 0.4 - 2.0 MMOL/L 05/07/2025 6:04 PM CDT [facility] 05/07/2025 5:39 PM CDT us Perlita Irving MD LABORATORY Final Result [facility] [address] [place] [address], [place] [phone] * (ABNORMAL) POCT glucose (05/07/2025 5:34 PM CDT) Only the most recent of2 resultswithin the time period is included. GLUCOSE POC 111(H) 70 - 110 mg/dL 05/07/2025 6:01 PM CDT [facility] 05/07/2025 5:34 PM CDT Perlita Irving MD POCT ORDERABLES - DEVICE Final Result [facility] [address] [place] [address], * ECG 12 lead (05/07/2025 5:30 PM CDT) 05/07/2025 5:[address] [facility] - 05/08/2025 4:46 AM CDT [facility] Test Date: 2025-05-07 Pat Name: ROBERT SCHAFER Department: 85 Room: EXAM 303 Gender: Male Apn: : 1970 Requested By: PERLITA IRVING Order Number: [id number] Reading MD: Jung Gloria Measurements Intervals Spring Rate: 67 P: 55 NH: 147 QRS: 54 QRSD: 90 T: 55 QT: 367 QTc: 388 Interpretive Statements SINUS RHYTHM Compared to ECG 07/08/2019 22:58:33 No significant changes Procedure Note Jung Gloria MD - 05/08/2025 [facility] Test Date: 2025-05-07 Pat Name: ROBERT SCHAFER Department: 85 Room: EXAM 303 Gender: Male Apn: : 1970 Requested By: PERLITA IRVING Order Number: [id number] Reading : Jung Gloria Measurements Intervals Spring Rate: 67 P: 55 NH: 147 QRS: 54 QRSD: 90 T: 55 QT: 367 QTc: 388 Interpretive Statements SINUS RHYTHM Compared to ECG 07/08/2019 22:58:33 No significant changes Perlita Irving MD ECG ORDERABLES Final Result Performing Organization Address City/[facility] [[email or web address]] Co de Phone Number [facility] * PRO-BRAIN NATRIURETIC PEPTIDE (05/07/2025 5:15 PM CDT) PRO-B TYPE NATRIURETIC PEPTIDE 36 <125 PG/ML 05/07/2025 6:07 PM CDT [facility] Comment: CUT POINTS ESTABLISHED BY [employer] ON NT PROBNP (ICON) STUDY (2006). AGE INDEPENDENT: <300 PG/ML HAS A 99% NEGATIVE PREDICTIVE VALUE FOR EXCLUDING ACUTE CHF <50 YEARS: >450 PG/ML IS CONSISTENT WITH ACUTE CHF 50-75 YEARS: >900 PG/ML IS CONSISTENT WITH ACUTE CHF >75 YEARS: >1800 PG/ML IS CONSISTENT WITH ACUTE CHF IN PATIENTS WITH RENAL INSUFFICIENCY (GFR <60), >1200 PG/ML YIELDS A DIAGNOSTIC SENSITIVITY AND SPECIFICITY OF 89% AND 72% FOR ACUTE CHF. 05/07/2025 5:15 PM CDT Perlita Irving MD LABORATORY Final Result Performing Organization Address [facility] [[email or web address]] Co de Phone Number [facility] [address] [place] [address], [place] [phone] * PROTIME/INR, VENOUS (05/07/2025 5:15 PM CDT) PROTIME 11.6 9.1 - 12.4 SEC 05/07/2025 5:46 PM CDT [facility] INR 1.0 05/07/2025 5:46 PM CDT [facility] Comment: Recommend INR ranges for Oral Anticoagulant Therapy: Mechanical Cardiac Values 2.5-3.5 All others indication 2.0-3.0 05/07/2025 5:15 PM CDT us Perlita Irving MD LABORATORY Final Result Performing Organization Address City/[facility]/ZIP Co de Phone Number [facility] [address] [place] [address], [place] [phone] * TROPONIN, QUANT (05/07/2025 5:15 PM CDT) TROPONIN I HIGH SENSITIVITY 5 0 - 75 ng/L 05/07/2025 5:59 PM CDT [facility] Comment: HIGH DOSES OF BIOTIN, TROPONIN-SPECIFIC AUTOANTIBODIES, AND ANTIBODY THERAPY CONTAINING HAMA MAY INTERFERE WITH THIS TEST RESULT. CORRELATION TO CLINICAL HISTORY AND PRESENTATION RECOMMENDED. 05/07/2025 5:15 PM CDT us Perlita Irving MD LABORATORY Final Result Performing Organization Address [facility] [[email or web address]] Co de Phone Number [facility] [address] [place] [address], [place] [phone] * MAGNESIUM (05/07/2025 5:15 PM CDT) Pathologist [facility] MAGNESIUM 1.9 1.8 - 2.4 MG/DL 05/07/2025 6:07 PM CDT [facility] 05/07/2025 5:15 PM CDT us Perlita Irving MD LABORATORY Final Result Performing Organization Address City/[facility]/ZIP Co de Phone Number [facility] [address] [place] [address], [place] [phone] * LIPASE (05/07/2025 5:15 PM CDT) Pathologist [facility] LIPASE 31 16 - 77 UNITS/L 05/07/2025 6:07 PM CDT [facility] 05/07/2025 5:15 PM CDT Perlita Irving MD LABORATORY Final Result Performing Organization Address City/[facility]/ZIP Co de Phone Number [facility] [address] [place] [address], [place] [phone] * ETHANOL (05/07/2025 5:15 PM CDT) ALCOHOL S/P/B <0.003 <0.003 G/DL 05/07/2025 6:07 PM CDT [facility] 05/07/2025 5:15 PM CDT Perlita Irving MD LABORATORY Final Result Performing Organization Address [facility] [[email or web address]] Co de Phone Number [facility] [id number] [place] [address], [place] [phone] * CK (CPK) (05/07/2025 5:15 PM CDT) CPK 121 39 - 308 U/L 05/07/2025 6:07 PM CDT [facility] 05/07/2025 5:15 PM CDT Perlita Irving MD LABORATORY Final Result Performing Organization Address City/[facility]/ZIP Co de Phone Number [facility] [address] [place] [address], [place] [phone] * EGD (07/08/2019) us Documents Scanned SCANNING Final Result from Last 3 Months or Most Recently Relevant to Health Maintenance Insurance [facility] Advance Directives Documents on File Type Date Recorded 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 Advance Directives and Livin g Will 07/23/2010 12:00 AM HCPOA * Full Code (Latest Code Status on File) Date Activated Date Inactivated Comments 01/22/2025 5:54 PM 01/24/2025 4:05 PM * Full Code Date Activated Date Inactivated Comments 05/18/2024 7:37 PM 05/20/2024 3:56 PM * Full Code Date Activated Date Inactivated Comments 07/09/2019 12:38 AM 07/11/2019 1:42 PM Care Teams Whipped Topping Supervisor Relationship Specialty Start Date End Date Juan Francisco Brito MD [address] [place] [address] PCP - General FAMILY PRACTICE 05/18/24 [place] [address] [place] [address] Consulting Physician GASTROENTEROLOGY 05/18/24
--- NOTE | 2025-06-03 12:47 | WPDHOLTEREM ---
Holter/Event Monitor Holter/Event Monitor Date of procedure: 05/14/25 Holter/Event Procedure: Event Monitor Indications: Syncope Conclusion: 1. 11 days event monitor on 05/14/25. 2. Predominant rhythm is sinus rhythm. HR range 47-156 bpm; average HR 80 bpm. 3. There are rare premature supraventricular complexes, rare supraventricular couplets, and rare supraventricular triplets. There are 2 episodes of supraventricular tachycardia with fastest at 156 bpm and longest 4 beats. 4. There are rare premature ventricular complexes and rare ventricular couplets. No ventricular tachycardia. 5. No significant pauses greater than 3 seconds. 6. Patient reports 4 episodes of symptoms of chest pain which demonstrate sinus rhythm, HR range 75-95 bpm.
== END 2025-05-14 07:21 | disposition home or self-care (01) ==
PROVIDERS: PCP Family Medicine; Visit Provider Family Medicine
DX: R55 Syncope and collapse (principal)
CPT/HCPCS: 93246